=== PATIENT | female | born 1940 | race Caucasian/White ===

== ENCOUNTER → 2017-10-04 14:41 | Outpatient (CLI) | payer OTHER, SELFPAY ==
--- NOTE | 2017-10-04 | DI.CT.S_ITS ---
PROCEDURE: CT ABDOMEN PELVIS WO CON INDICATIONS: ABDOMINAL PAIN LEFT LOWER QUADRANT TECHNIQUE: After the administration of oral contrast, 5 mm thick sections acquired from the diaphragms to the symphysis. 5 mm coronal and sagittal reformats were performed. For radiation dose reduction, the following was used: automated exposure control, adjustment of mA and/or kV according to patient size. COMPARISON: None. FINDINGS: Image quality: Excellent. ABDOMEN: Lung bases: There is mild anterior left basilar atelectasis. The lung bases are otherwise clear. Heart size is mildly enlarged. No pericardial effusion. Solid organs: Liver is normal in size. Gallbladder is contracted. Pancreas is normal in size. Spleen is normal in size. No adrenal nodules. Both kidneys are normal in size, without hydronephrosis or nephrolithiasis. Peritoneum and bowel: The stomach is contrast-filled. The small bowel demonstrates normal caliber and wall thickness. There colonic diverticular outpouchings throughout the colon. These are most concentrated within the sigmoid colon. Focal mucosal thickening and pericolonic fat stranding is present within the mid sigmoid colon (series 2, image 67). No discrete pericolonic fluid or pneumoperitoneum. The appendix is thin walled and gas-filled. Nodes and vessels: No retroperitoneal or mesenteric adenopathy by size criteria. Aorta and inferior vena cava are normal in size. Miscellaneous: No ventral hernias. PELVIS: Genitourinary: Bladder wall thickness is normal. Miscellaneous: No inguinal hernias or adenopathy. Bones: A 7 mm diameter sclerotic focus is present within the right and a 7 mm sclerotic focus is present within the right iliac. These likely represent small bone islands, but no prior comparisons are available. Degenerative changes are present throughout the lumbar spine. No vertebral body compression fractures. IMPRESSION: 1. Diverticulosis and acute nonperforated diverticulitis. 2. Normal appendix. These findings were discussed with Dr. Stratton at 5:27 PM on 10/04/17. Dictated by: Aracely Cerrato M.D. on 10/04/2017 at 17:20 Approved by: Aracely Cerrato M.D. on 10/04/2017 at 17:28
== END ==
PROVIDERS: PCP Nurse Practitioner Family; Visit Provider Nurse Practitioner Family
DX: K57.92 Diverticulitis of intestine, part unspecified, without perforation or abscess without bleeding (principal); R10.32 Left lower quadrant pain
CPT/HCPCS: 74176

== ENCOUNTER → 2017-12-08 10:14 | Outpatient (CLI) | payer OTHER, SELFPAY ==
--- NOTE | 2017-12-08 | DI.MG.S_ITS ---
BILATERAL DIGITAL SCREENING MAMMOGRAM 3D/2D WITH CAD: 12/08/2017 CLINICAL: Routine screening. Family history of breast cancer. Comparison is made to exams dated: 07/30/2016 mammogram, 01/21/2015 mammogram, and 01/15/2014 mammogram - [facility]. The tissue of both breasts is heterogeneously dense. This may lower the sensitivity of mammography. Current study was also evaluated with a Computer Aided Detection (CAD) system. There are benign vascular calcifications in both breasts. There is a mole marker on the right breast. No significant masses, calcifications, or other findings are seen in either breast. There has been no significant interval change. IMPRESSION: There is no mammographic evidence of malignancy. A 1 year screening mammogram is recommended.(12/09/2018) This exam was interpreted at Station ID: [id number]. NOTE: For mammograms, a report in lay terms will be sent to the patient. Approximately 15% of breast malignancies will not be visualized mammographically. In the management of a palpable breast mass, a negative mammogram must not discourage biopsy of a clinically suspicious lesion. Electronically Signed By: Nas melendez/tiarra:12/09/2017 05:48:20 letter sent: Normal Exam ACR BI-RADS Category 2: Benign Finding(s) 3342F
== END ==
PROVIDERS: PCP Nurse Practitioner Family; Visit Provider Nurse Practitioner Family
DX: Z12.31 Encounter for screening mammogram for malignant neoplasm of breast (principal); Z80.3 Family history of malignant neoplasm of breast
CPT/HCPCS: 77063; 77067

== ENCOUNTER → 2018-06-09 12:09 | Outpatient (CLI) | payer OTHER, SELFPAY ==
--- NOTE | 2018-06-09 | DI.US.S_ITS ---
PROCEDURE: US PERIPH VENOUS LOW EXTREM BI INDICATIONS: BILATERAL LEG PAIN TECHNIQUE: Real-time imaging, as well as color and pulse Doppler interrogation, were performed of the deep veins of both legs from the inguinal ligament to the popliteal fossa. COMPARISON: None. FINDINGS: Right: The common femoral, femoral and popliteal veins are normally compressible, and free of intraluminal thrombus. Color and pulse Doppler demonstrate normal phasic intravascular flow. There is normal augmentation response to distal compression maneuver. Left: The common femoral, femoral and popliteal veins are normally compressible, and free of intraluminal thrombus. Color and pulse Doppler demonstrate normal phasic intravascular flow. There is normal augmentation response to distal compression maneuver. IMPRESSION: No DVT in lower extremities. Dictated by: Guero Almeida M.D. on 06/09/2018 at 13:28 Approved by: Guero Almeida M.D. on 06/09/2018 at 13:29
== END ==
PROVIDERS: PCP Nurse Practitioner Family; Visit Provider Nurse Practitioner Family
DX: M79.604 Pain in right leg (principal); M79.605 Pain in left leg
CPT/HCPCS: 93970

== ENCOUNTER → 2018-08-02 09:37 | Outpatient (CLI) | payer OTHER, SELFPAY | PROVIDERS: PCP Nurse Practitioner Family; Visit Provider Family Medicine | DX: M85.88 Other specified disorders of bone density and structure, other site (principal); Z78.0 Asymptomatic menopausal state; Z82.62 Family history of osteoporosis; Z87.891 Personal history of nicotine dependence | CPT/HCPCS: 77080 ==

== ENCOUNTER → 2018-12-30 08:59 | Outpatient (CLI) | payer OTHER, SELFPAY ==
--- NOTE | 2018-12-30 | DI.MG.S_ITS ---
BILATERAL DIGITAL DIAGNOSTIC MAMMOGRAM 3D/2D: 12/30/2018 CLINICAL: Left breast pain. Comparison is made to exams dated: 12/08/2017 mammogram, 07/30/2016 mammogram, 01/21/2015 mammogram, 01/15/2014 mammogram, 01/12/2013 mammogram - [facility], and 03/03/2011 mammogram - [facility]. The tissue of both breasts is heterogeneously dense. This may lower the sensitivity of mammography. No significant masses, calcifications, or other findings are seen in either breast. There has been no significant interval change. No abnormality in the region of diffuse left lateral breast pain. IMPRESSION: NEGATIVE There is no mammographic evidence of malignancy. A 1 year screening mammogram is recommended. Exam findings were conveyed to the patient by the room service associate. The patient was advised to return for re-evaluation if the pain becomes focal, a mass is palpated, skin changes, or nipple discharge. This exam was interpreted at Station ID: [id number]. NOTE: For mammograms, a report in lay terms will be sent to the patient. Approximately 15% of breast malignancies will not be visualized mammographically. In the management of a palpable breast mass, a negative mammogram must not discourage biopsy of a clinically suspicious lesion. Electronically Signed By: Iftikhar Delarosa M.D. [facility]/:12/30/2018 09:49:54 letter sent: Normal Exam ACR BI-RADS Category 1: Negative 3341F
== END ==
PROVIDERS: PCP Nurse Practitioner Family; Visit Provider Nurse Practitioner Family
DX: N64.4 Mastodynia (principal)
CPT/HCPCS: 77066; G0279

== ENCOUNTER → 2019-01-10 13:31 | Outpatient (CLI) | payer OTHER, SELFPAY ==
--- NOTE | 2019-01-10 14:57 | PM.TREADMILL ---
Cardiac Stress Test Report Referral & Results Date Patient Seen: 01/10/19 Requesting provider: Amaya Palomares Indication: First-degree AV block Rest ECG: Unremarkable except for first-degree AV block Procedure Note: Today following both written and verbal informed consent, the patient was exercised according to a standard Abel protocol. The patient exercised for a total of 6 minutes 33 seconds achieving a maximum heart rate of 152. Patient's maximum systolic blood pressure was 160. This was an estimated 7.[address]-T segment changes identified Normal heart rate and blood pressure response to exercise Functional aerobic impairment rates about-20% on the active scale or 20% better than average Occasional to rare PAC Occasional multifocal PVCs Impression: No ECG evidence of ischemia Excellent exercise capacity Please note: Actual ECG tracings can be found in the PACS system.
== END ==
PROVIDERS: PCP Nurse Practitioner Family; Visit Provider Nurse Practitioner Family
DX: I44.0 Atrioventricular block, first degree (principal); R07.89 Other chest pain
CPT/HCPCS: 93016; 93017; 93018

== ENCOUNTER → 2019-01-11 06:41 | Outpatient (CLI) | payer OTHER, SELFPAY ==
--- NOTE | 2019-01-11 | DI.ECHO.S_ITS ---
[facility] +---------+ [facility] +---------+ : : [address] : : : : [id number] : : : : Phone: [phone]+ Echocardiogram Report + + :Name: KANDACE FINCH Study Date: 01/11/2019 Height: 66 in : :[facility] Weight: 137 lb : : Gender: Female BSA: 1.7 m2 : :: 1940 Age: 78 yrs BP: 150/90 mmHg: :Reason For Study: CHEST PAIN : : Performed By: Francisco J Astorga : :Referring: DALTON DALLAS : + + Interpretation Summary Left ventricular systolic function is normal without focal wall motion abnormalities with a ejection fraction visually estimated to be 55-60%. Diastolic parameters suggest a relaxation abnormality of the left ventricle, consistent with probable normal filling pressures. The right ventricle is normal in size and function. The right ventricular systolic pressure is estimated to be at least 26 mmHg based on an estimated right atrial pressure of 3 mm Hg. The left atrium is moderately dilated. There is moderate mitral regurgitation and mild tricuspid regurgitation but no other significant valvular heart disease. The ascending aorta is mildly enlarged. Procedure: A two-dimensional transthoracic echocardiogram with color flow and Doppler was performed. The study quality was technically good. There is no prior echocardiogram noted for this patient. The patient was in normal sinus rhythm during the exam. The patient had occasional PVCs during the exam. Left Ventricle: The left ventricle is normal in size. There is normal left ventricular wall thickness. Left ventricular systolic function is normal without focal wall motion abnormalities. The ejection fraction is estimated to be 55-60%. Diastolic parameters suggest a relaxation abnormality of the left ventricle, consistent with probable normal filling pressures. Right Ventricle: The right ventricle is normal in size and function. Atria: The left atrium is moderately dilated. Right atrial size is normal. The interatrial septum is intact with no evidence for an atrial septal defect. Mitral Valve: The mitral valve leaflets appear mildly thickened, but open well. There is moderate mitral regurgitation. Aortic Valve: The aortic valve is trileaflet. The aortic valve opens well. No aortic regurgitation is present. Tricuspid Valve: The tricuspid valve is normal in structure and function. There is mild tricuspid regurgitation. The right ventricular systolic pressure is estimated to be at least 26 mmHg based on an estimated right atrial pressure of 3 mm Hg. Pulmonic Valve: The pulmonic valve is normal in structure and function. There is trace pulmonic regurgitation. There is no other significant valvular heart disease. Great Vessels: The aortic root is normal size. The ascending aorta is mildly enlarged. The pulmonary artery is normal size. The IVC is of normal diameter and collapses greater than 50% with a sniff. This suggests a low right atrial pressure of 3 mm Hg. Pericardium/ Pleura There is no pericardial effusion. There is no pleural effusion. MMode/2D Measurements & Calculations LVIDd: 4.4 cm LVOT diam: 2.2 cm LVIDs: 3.3 cm Ao root diam: 3.8 cm FS: 24.5 % Aortic Jxn: 3.3 cm EPSS: 0.62 cm asc Aorta Diam: 3.6 cm IVSd: 0.83 cm Ao Arch Diam (Prox Trans): 2.7 cm LVPWd: 0.78 cm LV pineda. diameter/BSA (cm/m^2): 2.6 LV sys. diameter/BSA (cm/m^2): 1.9 LA dimension: 2.9 cm RA long axis: 4.9 cm LA A2 area: 21.7 cm2 RA area: 16.2 cm2 LA A4 area: 19.5 cm2 RA vol: 45.7 ml LA length (vol): 5.0 cm RA : 26.9 ml/m2 LA vol: 71.3 ml IVC diam: 1.7 cm LA vol index: 41.9 ml/m2 RVD1 (basal): 4.4 cm RVD2 (mid): 3.8 cm Doppler Measurements & Calculations Ao V2 max: 109.2 cm/sec LVOT Max Guilherme: 92.2 cm/sec Ao V2 mean: 76.4 cm/sec LV V1 max P.4 mmHg Ao max P.8 mmHg LV V1 VTI: 22.4 cm Ao mean P.5 mmHg TIFFANIE(I,D): 3.5 cm2 Ao V2 VTI: 25.0 cm TIFFANIE(V,D): 3.3 cm2 sev ratio: 0.89 TIFFANIE indexed to BSA (cm^2/m^2): 2.0 MV E max guilherme: 39.7 cm/sec TR max guilherme: 240.3 cm/sec MV A max guilherme: 71.4 cm/sec TR max P.1 mmHg MV E/A: 0.56 PA V2 max: 51.6 cm/sec Med Peak E' Guilherme: 3.6 cm/sec PA V2 mean: 39.4 cm/sec E/E' med: 11.0 PA mean P.66 mmHg Lat Peak E' Guilherme: 7.6 cm/sec PA pr(Accel): 49.1 mmHg E/E' lat: 5.2 PA Accel Time: 0.07 sec E/e' average: 8.1 MV dec time: 0.17 sec SV(LVOT): 87.1 ml Reading Physician:GLADIS
== END ==
PROVIDERS: PCP Nurse Practitioner Family; Visit Provider Nurse Practitioner Family
DX: I08.1 Rheumatic disorders of both mitral and tricuspid valves (principal); R07.89 Other chest pain; I44.0 Atrioventricular block, first degree; I77.89 Other specified disorders of arteries and arterioles
CPT/HCPCS: 93306

== ENCOUNTER 2019-11-16 16:45 | Emergency (ER) | payer OTHER, SELFPAY ==
[2019-11-16 16:59] VITALS: BP 183/96; PULSE 92; RESP 18; TEMP 36.6; O2SAT 99; BMI 21.6
--- NOTE | 2019-11-16 17:05 | DI.RAD.S_ITS ---
PROCEDURE: XR RIBS LT MIN 3V W CXR1V INDICATIONS: L lower rib pain post fall TECHNIQUE: 2 views of the left ribs were acquired, along with a single view chest. COMPARISON: None. FINDINGS: Surgical changes and devices: None. Bones and chest wall: No dislocations. There appears to be a slightly angulated fracture involving the anterior aspect of the left 6th rib near the area of plain film surface marker indicating site of maximal tenderness. No suspicious bony lesions. Overlying soft tissues appear unremarkable. Lungs and pleura: No pleural effusions or pneumothorax. Lungs appear clear. Mediastinum: Mediastinal contours appear normal. Heart size is normal. IMPRESSION: No pneumothorax. Minimally displaced anterior left 6th rib fracture. Dictated by: Adrian Salgado M.D. on 11/16/2019 at 17:25 Approved by: Adrian Salgado M.D. on 11/16/2019 at 17:27
--- NOTE | 2019-11-16 17:05 | DI.RAD.S_ITS ---
PROCEDURE: XR HAND LT MIN 3V INDICATIONS: L lateral hand pain post fall (4-5 metatarsals) TECHNIQUE: 3 views of the hand(s) acquired. COMPARISON: None. FINDINGS: Bones: No fractures or dislocations. Carpal bones are normally aligned. No suspicious bony lesions. Soft tissues: No suspicious soft tissue calcifications. 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 Mild to moderate such degeneration at the base of the 1st metacarpal bone. No fracture or dislocation found. Dictated by: Adrian Salgado M.D. on 11/16/2019 at 17:27 Approved by: Adrian Salgado M.D. on 11/16/2019 at 17:28
--- NOTE | 2019-11-16 17:08 | ED_ITS ---
HPI - Extremity Injury (Upper) <TIM Pantoja - Last Filed: 11/16/19 20:58> General Chief Complaint: Extremity Injury, Upper Stated Complaint: LT RIB PAIN, LT WRIST PAIN Time Seen by Provider: 11/16/19 16:56 History of Present Illness HPI narrative: 79yo female presents to the emergency department for left hand in left rib pain after fall. Patient states she was playing pickleball and slipped and fell on her left side. She reports sharp stabbing pain under her left breast when she takes a deep breath or moves and changes position. Patient states she also fell on her hand, complains of swelling and bruising to the the lateral aspect of her left hand with pain upon palpation. Patient denies any other injury, she denies head injury, syncope, dizziness, nausea, vomiting, diarrhea, or any other concerns. Related Data Home Medications Medication Instructions Recorded Confirmed aspirin 650 mg PO QDAY #0 10/16/15 calcium acetate(phosphat bind) 667 mg PO TIDCC #0 10/16/15 multivitamin [Multiple Vitamins] 1 tab PO QDAY #0 tab 10/16/15 Allergies Allergy/AdvReac Type Severity Reaction Status Date / Time iodine [IODINE] Allergy Unknown INJECTED Unverified 06/23/17 12:24 IODINE ONLY, NOT TOPICAL Review of Systems <TIM Pantoja - Last Filed: 11/16/19 20:58> Review of Systems Narrative: REVIEW OF SYSTEMS: GENERAL: Denies fever or chills. HENT: No head trauma. EYES: No double vision or vision loss. CARDIOVASCULAR: No chest pain. RESPIRATORY: No cough. GASTROINTESTINAL: No nausea, vomiting, diarrhea, or constipation. MUSCULOSKELETAL: Complains of left hand and rib pain, see HPI. INTEGUMENTARY: No rash. NEURO: No numbness, tingling. PSYCH: No behavior or mood changes. Patient History <TIM Pantoja - Last Filed: 11/16/19 20:58> Medical History No significant medical problems (Acute) Social History Smoking Status: Former smoker Exam <TIM Pantoja - Last Filed: 11/16/19 20:58> Initial Vital Signs Initial Vital Signs: Vital Signs Temperature 97.9 F 11/16/19 16:59 Pulse Rate 92 H 11/16/19 16:59 Respiratory Rate 18 11/16/19 16:59 Blood Pressure 183/96 H 11/16/19 16:59 Pulse Oximetry 99 11/16/19 16:59 PHYSICAL EXAMINATION: GENERAL: Well groomed, alert, and cooperative. Answers questions promptly and appropriately. Vital signs noted. HENT: Normocephalic, atraumatic. EYES: Symmetrical, sclera white, no periorbital swelling. NECK: No cervical tenderness. CARDIOVASCULAR: S1 and S2 sounds normal. Regular rate and rhythm, no murmurs, clicks, or bruits. RESPIRATORY: Normal respiratory rate, trachea midline, airway patent. No stridor, nasal flaring or accessory muscle use. Lungs are clear in all hester. MUSCULOSKELETAL: Ecchymosis, swelling, and tenderness to palpation over 4th and 5th left metacarpals, tenderness to palpation of lower left anterior ribs. No pain to palpation of left wrist, elbow, clavicle, hip, knee, or ankle. Normal gait and coordination. Equal tone and mass bilaterally. No spinal tenderness or deformities. EXTREMITIES: CMS intact. SKIN: Warm, dry, soft, appropriate color for ethnicity. No lesions, rashes, or wounds. NEURO: Alert and Oriented X 3. No sensory deficits. PSYCH: Appropriate affect and mood. <Kranthi Swift DO - Last Filed: 11/17/19 00:46> Initial Vital Signs Initial Vital Signs: Vital Signs Temperature 97.9 F 11/16/19 16:59 Pulse Rate 92 H 11/16/19 16:59 Respiratory Rate 18 11/16/19 16:59 Blood Pressure 183/96 H 11/16/19 16:59 Pulse Oximetry 99 11/16/19 16:59 Course <TIM Pantoja - Last Filed: 11/16/19 20:58> Orders Ordered: ED Orders 11/16/19 17:05 XR hand LT min 3V Stat XR ribs LT min 3V w CXR1V Stat Vital Signs Vital signs: Vital Signs - 8 hr 11/16/19 16:59 Temperature 97.9 F Pulse Rate 92 H Respiratory Rate 18 Blood Pressure 183/96 H Pulse Oximetry 99 <Kranthi Swift DO - Last Filed: 11/17/19 00:46> Orders Ordered: ED Orders 11/16/19 17:05 XR hand LT min 3V Stat XR ribs LT min 3V w CXR1V Stat Vital Signs Vital signs: Vital Signs - 8 hr 11/16/19 16:59 Temperature 97.9 F Pulse Rate 92 H Respiratory Rate 18 Blood Pressure 183/96 H Pulse Oximetry 99 MDM - Extremity Injury (Upper) <TIM Pantoja - Last Filed: 11/16/19 20:58> Medical Records Attestation: I reviewed the patient's medical records. Lab Data Attestation: I reviewed the patient's lab results. Imaging Data Rib Xray: Radiologist's Impression: [address] [address] XRay Report Signed Patient: Felicita Bhatti OSWALDO#: [id number] : 2Acct:[id number] Age/Sex: 79 / FDate of Service: 11/16/19 Loc: ED Accession Number: [id number] Procedure: XR ribs LT min 3V w CXR1V Ordering Provider: Angela Crooks PROCEDURE: XR RIBS LT MIN 3V W CXR1V INDICATIONS: L lower rib pain post fall TECHNIQUE: 2 views of the left ribs were acquired, along with a single view chest. COMPARISON: None. FINDINGS: Surgical changes and devices: None. Bones and chest wall: No dislocations. There appears to be a slightly angulated fracture involving the anterior aspect of the left 6th rib near the area of plain film surface marker indicating site of maximal tenderness. No suspicious bony lesions. Overlying soft tissues appear unremarkable. Lungs and pleura: No pleural effusions or pneumothorax. Lungs appear clear. Mediastinum: Mediastinal contours appear normal. Heart size is normal. IMPRESSION: No pneumothorax. Minimally displaced anterior left 6th rib fracture. Dictated by: Adrian Salgado M.D. on 11/16/2019 at 17:25 Approved by: Adrian Salgado M.D. on 11/16/2019 at 17:27 Extremity x-ray #1: Radiologist's Impression: [address] [address] XRay Report Signed Patient: GaneshalyFelicita#: [id number] : 2Acct:[id number] Age/Sex: 79 / FDate of Service: 11/16/19 Loc: ED Accession Number: [id number] Procedure: XR hand LT min 3V Ordering Provider: Angela Crooks PROCEDURE: XR HAND LT MIN 3V INDICATIONS: L lateral hand pain post fall (4-5 metatarsals) TECHNIQUE: 3 views of the hand(s) acquired. COMPARISON: None. FINDINGS: Bones: No fractures or dislocations. Carpal bones are normally aligned. No suspicious bony lesions. Soft tissues: No suspicious soft tissue calcifications. 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 Mild to moderate such degeneration at the base of the 1st metacarpal bone. No fracture or dislocation found. Dictated by: Adrian Salgado M.D. on 11/16/2019 at 17:27 Approved by: Adrian Salgado M.D. on 11/16/2019 at 17:28 MDM Narrative Medical decision making narrative: 79-year-old female presenting to the emergency department after a fall, reporting left hand and left rib pain. Chest x-ray shows a single 6th rib fracture without indication of pulmonary contusion or abnormalities. And x-ray negative for any fractures. Patient declined any pain medication, appeared to be moving without severe pain. Patient was given incentive spirometer. She was encouraged to follow up with PCP in 1-2 weeks. No concern for head trauma due to benign examination, patient was alert and awake and able to relate aspects of fall, denies hitting her head. Return precautions given for new or worsening symptoms. Patient agreed to plan of care and verbalized understanding Discharge Plan Departure Patient Disposition: Home Clinical Impression: Rib fracture Qualifiers: Encounter type: initial encounter Rib fracture type: single rib Fracture type: closed Laterality: left Qualified Code(s): S22.32XA - Fracture of one rib, left side, initial encounter for closed fracture Left wrist sprain Qualifiers: Encounter type: initial encounter Qualified Code(s): S63.502A - Unspecified sprain of left wrist, initial encounter Discharge Date/Time: 11/16/19 18:28 Instructions: DI for Rib Fracture Activity Restrictions/Additional Instructions: Thank you for entrusting me with your care today. As discussed, you have a fracture to your 6th rib. Your wrist x-rays non-remarkable. We have given you an incentive spirometer, take 10 deep breath 10 times a day for the next 4 weeks to help prevent pneumonia. Follow-up with your primary care provider in the next 2-3 weeks for further evaluation. Return emergency department for any new or worsening symptoms such as high fever, shortness of breath, or any other concerns. Prescriptions: No Action aspirin 325 MG tablet 650 mg PO QDAY Qty: 0 RF: 0 multivitamin [Multiple Vitamins] 1 EACH tablet 1 tab PO QDAY Qty: 0 RF: 0 calcium acetate(phosphat bind) 667 MG capsule 667 mg PO TIDCC Qty: 0 RF: 0 Referrals: Amaya Palomares ARNP [Primary Care Provider] - <Kranthi Swift DO - Last Filed: 11/17/19 00:46> Cosign ED Attending Cosignature Attestation: I was immediately available in the department for consultation. This documentation has been reviewed and I agree with assessment and plan. Supervised by Kranthi Swift DO
== END 2019-11-16 18:28 | disposition home or self-care (01) ==
PROVIDERS: Emergency Provider Nurse Practitioner; PCP Nurse Practitioner Family
DX: S22.32XA Fracture of one rib, left side, initial encounter for closed fracture (principal); S63.502A Unspecified sprain of left wrist, initial encounter; W19.XXXA Unspecified fall, initial encounter
CPT/HCPCS: 71101; 73130; 99283

== ENCOUNTER → 2020-01-06 08:57 | Outpatient (CLI) | payer OTHER, SELFPAY ==
--- NOTE | 2020-01-06 | DI.MG.S_ITS ---
BILATERAL DIGITAL SCREENING MAMMOGRAM 3D/2D WITH CAD: 01/06/2020 CLINICAL: Routine screening. Family history of breast cancer. Comparison is made to exams dated: 12/30/2018 mammogram, 12/08/2017 mammogram, and 07/30/2016 mammogram - [facility]. The tissue of both breasts is heterogeneously dense. This may lower the sensitivity of mammography. Current study was also evaluated with a Computer Aided Detection (CAD) system. No significant masses, calcifications, or other findings are seen in either breast. There has been no significant interval change. IMPRESSION: NEGATIVE There is no mammographic evidence of malignancy. A 1 year screening mammogram is recommended. This exam was interpreted at Station ID: [id number]. NOTE: For mammograms, a report in lay terms will be sent to the patient. Approximately 15% of breast malignancies will not be visualized mammographically. In the management of a palpable breast mass, a negative mammogram must not discourage biopsy of a clinically suspicious lesion. Electronically Signed By: Rupesh martinez/tiarra:01/08/2020 08:40:19 letter sent: Normal Exam ACR BI-RADS Category 1: Negative [id number]
== END ==
PROVIDERS: PCP Internal Medicine; Referring Provider Internal Medicine; Visit Provider Internal Medicine
DX: Z12.31 Encounter for screening mammogram for malignant neoplasm of breast (principal); Z80.3 Family history of malignant neoplasm of breast
CPT/HCPCS: 77063; 77067

== ENCOUNTER → 2020-07-10 14:12 | Outpatient (CLI) | payer OTHER, SELFPAY | PROVIDERS: PCP Internal Medicine; Referring Provider Internal Medicine; Visit Provider Internal Medicine | DX: M85.89 Other specified disorders of bone density and structure, multiple sites (principal) | CPT/HCPCS: 77080 ==

== ENCOUNTER → 2020-10-09 10:18 | Outpatient (CLI) | payer OTHER, SELFPAY ==
[2020-10-09 11:19] LABS: COVID19 -Nasal RAPID Negative (Negative)
== END ==
PROVIDERS: PCP Internal Medicine; Visit Provider Physician Assistant
DX: Z20.822 Contact with and (suspected) exposure to COVID-19 (principal)
CPT/HCPCS: 87635

== ENCOUNTER 2020-10-11 14:16 | Day surgery (SDC) | payer OTHER, SELFPAY ==
[2020-10-11] VITALS (7 sets, daily range): BP systolic 109–147; BP diastolic 63–91; PULSE 58–87; RESP 13–17; TEMP 36.3–36.6; O2SAT 96–99; BMI 20.7
--- NOTE | 2020-10-11 12:27 | PM.HP.1 ---
History of Present Illness History of Present Illness Date Patient Seen: 10/11/20 Chief complaint: SCREENING COLONOSCOPY Narrative: 79 year old female comes in today for consideration of a screening colonoscopy. Two lifetime colonoscopies. Last colonoscopy in 2010 significant for diverticulosis. There have been no lower GI symptoms suggesting disease such as change in bowel habits, bleeding, abdominal pain or anemia. There's been no family history of colon cancer or colon polyps. Overall health issues have been stable, including no major cardiac events for at least 6 weeks. 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 Patient History Medical History (Updated 12/01/19 @ 00:00 by ) No significant medical problems Family & Social History Tobacco & Substance use: Smoking Status Former smoker alcohol intake frequency 0-2 drinks per day Substance Use Type does not use Meds Home Medications and Allergies Home Medications Medication Instructions Recorded Confirmed Type atorvastatin 10 mg tablet 10 mg PO QPM 10/11/20 10/11/20 History losartan 25 mg tablet 25 mg PO DAILY 10/11/20 10/11/20 History Allergies Allergy/AdvReac Type Severity Reaction Status Date / Time iodine [IODINE] Allergy Unknown INJECTED Verified 10/11/20 14:47 IODINE ONLY, NOT TOPICAL Review of Systems Review of Systems Narrative: See HPI. Exam Narrative Exam Narrative: GENERAL: Alert and oriented, appearing stated age and in no acute distress. HEENT: Head normocephalic/atraumatic. LUNGS: Clear to ausculation bilaterally, no wheezes, rhonchi or rales. CV: Normal S1 and S2 with regular rate and rhythm, no audible murmurs, rubs or gallops. ABDOMEN: Soft, non-tender, non-distended, no organomegaly. Positive bowel sounds. EXTREMITIES: No clubbing, cyanosis, or edema. NEURO: Cranial nerves II through XII grossly intact, no focal deficits. PSYCH: Alert and oriented x 3. SKIN: No concerning lesions. Assessment & Plan Assessment & Plan narrative: 1. Screening for colon cancer 2. History of diverticulosis Plan for colonoscopy. The nature and character of the procedure as well as anticipated results were discussed. The possibility of not completing the procedure was also discussed. Possible complications including aspiration pneumonia, bleeding, perforation and reaction to medications either for sedation or preparation and missed lesions were discussed. Questions were answered and proceeding to the colonoscopy was elected. Informed consent signed. I sincerely appreciate the referral allowing me to participate in this patient's care. Please contact me with any questions or concerns.
--- NOTE | 2020-10-11 12:31 | PM.OP.ENDO ---
Operative Date/Time/Diagnoses Date of procedure: 10/11/20 Procedure Notes SCOAP/Timeout: 3:18 p.m. Procedure in detail: ENDOSCOPIST: Jaclyn Avery MD Sedation RN: Emely Schmitt RN Sedation start time: 3:19 p.m. Sedation end time: 3:47 p.m. PROCEDURE: Colonoscopy INDICATIONS: 1. Screening for colon cancer 2. History of diverticulosis MEDICATION: Levsin 0.125 mg sublingual, incremental doses of Versed and fentanyl until appropriate level of sedation achieved. ASA CLASS: 2 CECAL WITHDRAWAL TIME: 7 minutes COMPLICATIONS: None. EXTENT OF PROCEDURE: Cecum. QUALITY OF PREP: Good with portions of liquid stool. PROCEDURE: Prior to insertion of the colonoscope, a digital rectal examination was accomplished with circumferential palpation of the distal rectal mucosa without significant findings being noted. The high-definition pediatric colonoscope was passed into the rectum in the usual fashion and advanced over to the cecum without difficulty. The ileocecal valve, appendiceal stoma, and medial wall all could be inspected and no abnormalities were seen. ASCENDING COLON: As the colonoscope was withdrawn, care was taken to expose and inspect the haustral folds and no abnormalities were seen. HEPATIC FLEXURE: Normal, no polyps, diverticula or other abnormalities. TRANSVERSE COLON: Mild diverticulosis, otherwise normal, no polyps or other abnormalities. DESCENDING COLON: Moderate diverticulosis, otherwise normal colon, no other abnormalities. SIGMOID COLON: Moderate to severe diverticulosis, otherwise normal, no polyps, or other abnormalities. RECTUM: Normal. J maneuver was produced. There was no significant perianal disease. The J maneuver was broken. The remainder of the rectum was inspected and there was no external hemorrhoid disease. The scope was withdrawn. IMPRESSION: 1. Diverticulosis, mild to severe, left and right-sided PLAN: 1. Patient no longer needs colonoscopies secondary to age. The possibility of a missed lesion including a malignancy has been discussed with the patient previously. Potential alarm symptoms have been discussed and should be reported immediately.
[2020-10-11] MEDS: LACTATED RINGERS 1,000 ML 200 ML IV (15:02)
[2020-10-11] MEDS: HYOSCYAMINE 0.125 MG TABLET PO (15:05)
[2020-10-11] MEDS: fentaNYL 250 MCG/5 ML INJ IV (15:36)
[2020-10-11] MEDS: MIDAZOLAM 5 MG/5 ML VIAL IV (15:36)
--- NOTE | 2020-10-11 16:08 | SUR.PHASEI ---
VSS, sleeping well, no response to voice. Did not induce pain - allowed patient to sleep
== END 2020-10-11 16:35 | disposition home or self-care (01) ==
PROVIDERS: PCP Internal Medicine; Referring Provider Student in an Organized Health Care Education/Training Program; Visit Provider Student in an Organized Health Care Education/Training Program
PROC: 0DJD8ZZ Inspection of Lower Intestinal Tract, Via Natural or Artificial Opening Endoscopic (ICD-10-PCS; CPT 45378; principal; 2020-10-11 15:15)
DX: Z12.11 Encounter for screening for malignant neoplasm of colon (principal); I10 Essential (primary) hypertension; E78.5 Hyperlipidemia, unspecified; I44.0 Atrioventricular block, first degree; K57.30 Diverticulosis of large intestine without perforation or abscess without bleeding
CPT/HCPCS: G0105; J2250; J3010

== ENCOUNTER → 2020-10-29 09:33 | Outpatient (CLI) | payer OTHER, SELFPAY ==
--- NOTE | 2020-10-29 | DI.ECHO.S_ITS ---
[facility] +---------+ Hospital +---------+ : : [address] : : : : [id number] : : : : Phone: [phone]+ Echocardiogram Report + + :Name: KANDACE FINCH Study Date: 10/29/2020 Height: 65.5 in: :[facility] ReadingLocation: Weight: 125 lb : : Gender: Female BSA: 1.6 m2 : :: 1940 Age: 79 yrs BP: 136/87 mmHg: :Reason For Study: MITRAL INSUFFICIENCY : :Ordering Physician: LINDA, : :JESSE Performed By: Meghan James : :Referring: JESSE SERNA : + + Interpretation Summary 1) Normal left ventricular size, thickness, wall motion, and systolic function (EF 60-65%). 2) Normal right ventricular size and function. 3) There is mild mitral regurgitation. 4) Compared to the Echo done 01/11/2019, mitral regurgitation has decreased from moderate to mild on this study. Procedure: A two-dimensional transthoracic echocardiogram with color flow and Doppler was performed. The study quality was technically adequate. Comparison is made with the echocardiogram of 01/11/2019. The patient was in sinus rhythm with heart rates between 63-68 bpm during the exam. Left Ventricle: The left ventricle is normal in size and wall thickness. The ejection fraction is estimated to be 60-65%. Left ventricular systolic function appears normal without focal wall motion abnormalities. Diastolic parameters suggest a relaxation abnormality of the left ventricle, consistent with probable normal filling pressures. Right Ventricle: The right ventricle is normal in size and function. Atria: Both atria are normal in size. There is no Doppler evidence for an interatrial shunt. Mitral Valve: The mitral valve leaflets appear mildly thickened, but open well. There is mild mitral regurgitation. Aortic Valve: The aortic valve is trileaflet. The aortic valve opens well. There is no aortic valve stenosis. No aortic regurgitation is present. Tricuspid Valve: The tricuspid valve is normal in structure and function. There is mild tricuspid regurgitation. The right ventricular systolic pressure is estimated to be at least 24 mmHg based on an estimated right atrial pressure of 3 mm Hg. Pulmonic Valve: The pulmonic valve is not well seen, but is grossly normal. There is mild pulmonic regurgitation. Great Vessels: The aortic root is normal size. The ascending aorta is mildly enlarged. The IVC is of normal diameter and collapses greater than 50% with a sniff. This suggests a low right atrial pressure of 3 mm Hg. Pericardium/ Pleura There is no pericardial effusion. There is no pleural effusion. MMode/2D Measurements & Calculations LVIDd: 4.3 cm LVOT diam: 2.0 cm LVIDs: 3.0 cm Ao root diam: 3.8 cm FS: 29.9 % asc Aorta Diam: 3.7 cm IVSd: 0.85 cm Ao Arch Diam (Prox Trans): 2.6 cm LVPWd: 0.68 cm LV pineda. diameter/BSA (cm/m^2): 2.6 LV sys. diameter/BSA (cm/m^2): 1.9 LA A2 area: 18.6 cm2 RA long axis: 5.1 cm LA A4 area: 16.1 cm2 RA area: 19.6 cm2 LA length (vol): 5.2 cm RA vol: 64.1 ml LA vol: 49.4 ml RA : 39.4 ml/m2 LA vol index: 30.3 ml/m2 IVC diam: 1.9 cm RVD1 (basal): 3.3 cm TAPSE: 1.7 cm Doppler Measurements & Calculations Ao V2 max: 103.3 cm/sec LVOT Max Guilherme: 101.0 cm/sec Ao V2 mean: 71.3 cm/sec LV V1 max P.1 mmHg Ao max P.3 mmHg LV V1 VTI: 21.4 cm Ao mean P.3 mmHg TIFFANIE(I,D): 3.1 cm2 Ao V2 VTI: 22.0 cm TIFFANIE(V,D): 3.1 cm2 sev ratio: 0.97 TIFFANIE indexed to BSA (cm^2/m^2): 1.9 MV E max guilherme: 40.2 cm/sec TR max guilherme: 231.7 cm/sec MV A max guilherme: 64.3 cm/sec TR max P.5 mmHg MV E/A: 0.62 PA V2 max: 98.7 cm/sec Med Peak E' Guilherme: 4.2 cm/sec PA V2 mean: 67.5 cm/sec E/E' med: 9.5 PA mean P.1 mmHg Lat Peak E' Guilherme: 8.1 cm/sec PA pr(Accel): 27.6 mmHg E/E' lat: 5.0 E/e' average: 7.2 MV dec time: 0.32 sec SV(LVOT): 68.3 ml Reading Physician:12:41 PM
== END ==
PROVIDERS: PCP Internal Medicine; Referring Provider Internal Medicine Cardiovascular Disease; Visit Provider Internal Medicine Cardiovascular Disease
DX: I08.1 Rheumatic disorders of both mitral and tricuspid valves (principal); I77.89 Other specified disorders of arteries and arterioles
CPT/HCPCS: 93306

== ENCOUNTER → 2022-06-13 08:28 | Outpatient (CLI) | payer OTHER, SELFPAY ==
--- NOTE | 2022-06-13 08:32 | DI.MRI.S_ITS ---
PROCEDURE: MR STROKE Pre- and post-contrast brain MRI, non-contrast brain MR angiogram, pre- and postcontrast neck MR angiogram INDICATIONS: Memory changes TECHNIQUE: Brain: Noncontrast axial T1 spin echo, axial T2 fast spin echo, sagittal and axial FLAIR, coronal T2 fast spin echo, axial gradient echo, axial diffusion and ADC through the brain. After the administration of contrast, axial 3D VIBE of the cranial vasculature and brain. Brain MRA: Non-contrast 3-D time of flight MR angiogram, with multiple mbzfxmh-lxltevqpi-mfjbieiwzr (MIP) reformats performed. Neck MRA: Axial and sagittal TruFISP through the neck. Coronal dynamic MR angiogram during administration of contrast in the arterial and venous phases, with 3-dimenstional zcdxdtr-lukiavxvp-vusqatonkx (MIP) reformats constructed from subtraction images. COMPARISON: None. FINDINGS: Image quality: Excellent. BRAIN: CSF spaces: Ventricles are normal in size and shape. Basal cisterns are patent. No extra-axial fluid collections. Brain: No intracranial bleeds or mass effects. Snyder-white matter interface is normal. Diffusion weighted images show a tiny right frontal cortical area of increased signal measuring 3 mm. There is no corresponding cytotoxic edema noted on the axial FLAIR imaging. This most likely represents an artifact and not a tiny focal acute infarct. There are no other foci of restricted diffusion noted on diffusion-weighted imaging. Age-related volume loss and jglh-rg-czuptxbg small vessel ischemic change. Brainstem appears normal. Normal intravascular flow voids are present. No abnormal intracranial enhancement. Skull and face: Calvarial marrow signal is normal. Orbits appear normal. Sinuses: Sinuses and mastoids are clear. BRAIN MR ANGIOGRAM: Anterior circulation: Intracranial internal carotid arteries are normal in size and enhancement. The flow within the paired anterior cerebral arteries is normal and symmetric. The flow within the middle cerebral arteries is normal and symmetric. The anterior communicating artery is seen. No stenoses, occlusions, or aneurysms. Posterior circulation: The right vertebral artery is dominant. The distal left vertebral artery is not visualized, consistent with occlusion. The basilar artery is widely patent. The flow within the posterior cerebral arteries is normal and symmetric. No stenoses, occlusions, or aneurysms. NECK MR ANGIOGRAM: Carotids: Great vessels demonstrate a conventional anatomy as they arise from the aortic arch. The origins of the common carotid arteries appear patent. The calibers and courses of both common carotid arteries are normal. The bifurcation regions appear normal bilaterally. The internal carotid arteries demonstrate normal course and caliber. Posterior circulation: The proximal left vertebral artery is diffusely diminutive. The vertebral artery appears to occlude in the high cervical region. The distal vertebral artery is not visualized on the ofmf-ap-vofbtc imaging. The left subclavian is noted to be widely patent. The right vertebral artery is a normal caliber vessel, giving rise to a normal caliber basilar artery. Miscellaneous: Subclavian arteries appear patent. Pre-contrast images through the neck show no soft tissue abnormalities. IMPRESSION: BRAIN MRI: 1. Age-related volume loss and ynrc-rp-yrnoopld small vessel ischemic change. 2. Probable tiny artifact on diffusion-weighted imaging in the lateral right frontal cortex, acute infarct felt unlikely. 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 Otherwise unremarkable MR angiogram of the brain. NECK MR ANGIOGRAM: 1. Widely patent carotids. 2. 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 Right vertebral artery is widely patent. Dictated by: Martínez Barrett M.D. on 06/15/2022 at 8:06 Approved by: Martínez Barrett M.D. on 06/15/2022 at 8:22
== END ==
PROVIDERS: PCP Internal Medicine; Referring Provider Internal Medicine; Visit Provider Internal Medicine
DX: R41.89 Other symptoms and signs involving cognitive functions and awareness (principal); R41.3 Other amnesia
CPT/HCPCS: 70548; 70553; A9579

== ENCOUNTER → 2022-10-08 14:11 | Outpatient (CLI) | payer OTHER, SELFPAY ==
--- NOTE | 2022-10-08 | DI.ECHO.S_ITS ---
[facility] +---------+ Hospital +---------+ : : [address] : : : : [id number] : : : : Phone: [phone]---------+ Echocardiogram Report + + :Name: KANDACE FINCH Study Date: 10/08/2022 Height: 65 in : :[facility] ReadingLocation: Weight: 124 lb : : Gender: Female BSA: 1.6 m2 : :: 1940 Age: 81 yrs BP: 138/86 mmHg: :Reason For Study: Rhematic Disorders : :Ordering Physician: DWAINE, : :SYDNEY Performed By: Cindy March : :Referring: SYDNEY ISIDRO : + + Interpretation Summary The ejection fraction is estimated to be 60-65%. Diastolic parameters suggest probable normal left ventricular diastolic function and normal filling pressures. The right ventricle is normal in size and function. There is mild mitral regurgitation. The right ventricular systolic pressure is estimated to be at least 23 mmHg based on an estimated right atrial pressure of 8 mm Hg. Compared to the prior study dated 10/29/2020, no significant change. Procedure: A two-dimensional transthoracic echocardiogram with color flow and Doppler was performed. The study quality was technically adequate. Comparison is made with the echocardiogram of 10/29/2020. The patient was in normal sinus rhythm during the exam. The patient had occasional PVCs during the exam. Left Ventricle: The left ventricle is normal in size. The ejection fraction is estimated to be 60-65%. Diastolic parameters suggest probable normal left ventricular diastolic function and normal filling pressures. Right Ventricle: The right ventricle is normal in size and function. Atria: The left atrial size is normal. Right atrial size is normal. There is no Doppler evidence for an interatrial shunt. Mitral Valve: The mitral valve leaflets appear mildly thickened, but open well. There is no mitral valve stenosis. There is mild mitral regurgitation. Aortic Valve: The aortic valve is trileaflet. The aortic valve opens well. There is no aortic valve stenosis. No aortic regurgitation is present. Tricuspid Valve: The tricuspid valve is normal. There is no tricuspid stenosis. There is trace tricuspid regurgitation. The right ventricular systolic pressure is estimated to be at least 23 mmHg based on an estimated right atrial pressure of 8 mm Hg. Pulmonic Valve: The pulmonic valve leaflets are thin and pliable; valve motion is normal. There is no pulmonic valvular stenosis. There is no pulmonic valvular regurgitation. Great Vessels: The aortic root is normal size. The ascending aorta is at the upper limits of normal in size. The pulmonary artery is normal size. The IVC is dilated (diameter is greater than 2.1 cm) yet it collapses greater than 50% with a sniff. This suggests a right atrial pressure of 8 mm Hg. Pericardium/ Pleura There is no pericardial effusion. There is no pleural effusion. MMode/2D Measurements & Calculations LVIDd: 3.8 cm LVOT diam: 1.9 cm LVIDs: 3.3 cm Ao root diam: 3.2 cm FS: 13.2 % asc Aorta Diam: 3.8 cm IVSd: 1.1 cm LVPWd: 1.2 cm LV pineda. diameter/BSA (cm/m^2): 2.4 LV sys. diameter/BSA (cm/m^2): 2.0 LA A2 area: 11.6 cm2 RA long axis: 4.4 cm LA A4 area: 11.2 cm2 RA area: 9.4 cm2 LA length (vol): 4.7 cm RA vol: 17.0 ml LA vol: 23.6 ml RA : 10.6 ml/m2 LA vol index: 14.6 ml/m2 RVD1 (basal): 4.2 cm LVLs ap4: 5.4 cm LVLd ap2: 5.8 cm TAPSE_phl: 1.7 cm LVLs ap2: 4.9 cm Doppler Measurements & Calculations Ao V2 max: 115.0 cm/sec LVOT Max Guilherme: 101.0 cm/sec Ao V2 mean: 81.9 cm/sec LV V1 max P.1 mmHg Ao max P.0 mmHg LV V1 VTI: 20.0 cm Ao mean P.0 mmHg TIFFANIE(I,D): 2.1 cm2 Ao V2 VTI: 26.4 cm TIFFANIE(V,D): 2.5 cm2 sev ratio: 0.76 TIFFANIE indexed to BSA (cm^2/m^2): 1.3 MV E max guilherme: 43.9 cm/sec TR max guilherme: 195.0 cm/sec MV A max guilherme: 86.4 cm/sec TR max P.2 mmHg MV E/A: 0.51 PA V2 max: 95.3 cm/sec Med Peak E' Guilherme: 3.1 cm/sec PA V2 mean: 62.6 cm/sec E/E' med: 14.2 PA mean P.0 mmHg Lat Peak E' Guilherme: 6.9 cm/sec PA pr(Accel): 49.3 mmHg E/E' lat: 6.4 E/e' average: 10.3 MV dec time: 0.29 sec SV(LVOT): 56.7 ml AV VR_phl: 0.88 TIFFANIE(VTI)/BSA_phl: 1.3 MV P1/2t-pr_phl: 84.0 msec Reading Physician:05:20 PM
--- NOTE | 2022-10-08 | DI.US.S_ITS ---
PROCEDURE: US CAROTID DOPPLER BI INDICATIONS: RIGHT BRUIT OF CAROTID TECHNIQUE: Color and pulse Doppler interrogation was performed of both carotid systems, with image documentation and velocity measurements. COMPARISON: None. FINDINGS: Stenosis calculations are based on SRU (Society of Radiologists in Ultrasound) criteria. Right side: Brachial blood pressure: 123/79 mm Hg. Common carotid artery peak systolic velocity: 72 cm/sec. Internal carotid artery peak systolic velocity: 61 cm/sec. Internal carotid artery end diastolic velocity: 20 cm/sec. External carotid artery peak systolic velocity: 57 cm/sec. ICA/CCA peak systolic ratio: 0.67 . Snyder scale imaging description: Mild diffuse atherosclerotic plaque. Percent internal carotid artery stenosis: Less than 50%. Vertebral artery: Flow direction is antegrade. Left side: Brachial blood pressure: 137/76 mm Hg. Common carotid artery peak systolic velocity: 68 cm/sec. Internal carotid artery peak systolic velocity: 85 cm/sec. Internal carotid artery end diastolic velocity: 29 cm/sec. External carotid artery peak systolic velocity: 63 cm/sec. ICA/CCA peak systolic ratio: 1 . Snyder scale imaging description: Mild diffuse atherosclerotic plaque. Percent internal carotid artery stenosis: Less than 50% . Vertebral artery: Flow direction is antegrade. IMPRESSION: Left than 50% stenosis by peak systolic velocity criteria within the internal carotid arteries. Dictated by: Renan Johnson M.D. on 10/08/2022 at 17:30 Approved by: Renan Johnson M.D. on 10/08/2022 at 17:32
--- NOTE | 2022-10-08 14:35 | DI.DEXA.S_ITS ---
Bone Density Report Name: KANDACE FINCH Age: 81 Sex: Female Ethnicity: White Date of : 1940 Indication: osteopenia; Referring Provider: SYDNEY ISIDRO Study: Bone densitometry was performed. Exam Date: October 08, 2022 Accession number: [id number] Bone Density: Region BMD T-score Z-score Classification AP Spine(L1-L4) 0.862 -1.7 1.0 Osteopenia Femoral Neck (Left) 0.610 -2.2 0.2 Osteopenia Total Hip (Left) 0.795 -1.2 0.9 Osteopenia Femoral Neck (Right) 0.558 -2.6 -0.3 Osteoporosis Total Hip (Right) 0.683 -2.1 0.0 Osteopenia Total Hip Mean 0.739 -1.7 0.5 Osteopenia World Health Organization criteria for BMD impression classify patients as: Normal (T-score at or above -1.0), Osteopenia (T-score between -1.0 and -2.5), or Osteoporosis (T-score at or below -2.5). 10-year Fracture Risk: FRAX not reported because: Some T-score for Spine Total or Hip Total or Femoral Neck at or below -2.5 Previous Exams: -- Region Exam Age BMD T-score BMD Change BMD Change Date g/cm2 vs Baseline vs Previous -- AP Spine (L1-L4) 10/08/2022 81 0.862 -1.7 -0.048 (-5.3%)# -0.048 (-5.3%)# 07/10/2020 79 0.910 -1.2 Total Hip(Left) 10/08/2022 81 0.795 -1.2 0.006 (0.8%)# 0.006 (0.8%)# 07/10/2020 79 0.789 -1.3 Total Hip(Right) 10/08/2022 81 0.683 -2.1 -0.037 (-5.2%)# -0.037 (-5.2%)# 07/10/2020 79 0.720 -1.8 -- *Denotes significance at 95% confidence level, LSC for AP Spine = 0.022 g/cm2, LSC for Total Hip = 0.027 g/cm2 # Denotes dissimilar scan types or analysis methods Impression: The patient has osteoporosis, based on the Right Femoral Neck T-score. No significant bone loss was observed. Discussion: INCREASED RISK OF FRACTURE. BONE DENSITY IS UNDESIRABLY LOW AT ONE OR MORE SKELETAL SITES, CONSISTENT WITH POSTMENOPAUSAL OSTEOPOROSIS. This patient's lowest T-score meets the World Health Organization's (WHO) criteria for osteoporosis at one or more sites (T-score -2.5 or below). In untreated patients, the risk of osteoporotic fracture increases approximately two-fold for each 1.0 SD decrease in T-score. Low bone density is not the only risk factor for fracture; also consider factors such as patient's age, frailty or poor health, risk of falling, risk of injury, previous osteoporotic fracture, family history of osteoporosis, cigarette smoking, low body weight, etc. Not everyone with low bone mineral density has osteoporosis; osteomalacia and other metabolic bone disorders should also be considered. Patients who have osteoporosis should be evaluated for specific diseases and conditions (secondary causes) that may cause or contribute to bone loss. The [place] Association [employer] Clinical Endocrinologists (AACE) and National Osteoporosis Foundation (NOF) recommend pharmacologic intervention for all postmenopausal women whose T-score is in this range. The patient should follow a healthful lifestyle (good nutrition with adequate calcium and vitamin D, and appropriate weight-bearing exercise). Follow-Up: Consider a repeat BMD and Vertebral Fracture Assessment (VFA) exam in 2 years or sooner if medically necessary, to reassess this patient's status. Reported by: DARRYL OLIVAS M.D. on 10/08/2022 2:46:00 PM.
== END ==
PROVIDERS: PCP Internal Medicine; Referring Provider Internal Medicine; Visit Provider Internal Medicine
DX: I34.0 Nonrheumatic mitral (valve) insufficiency (principal); I44.0 Atrioventricular block, first degree; I65.23 Occlusion and stenosis of bilateral carotid arteries; I38 Endocarditis, valve unspecified; R09.89 Other specified symptoms and signs involving the circulatory and respiratory systems; M81.0 Age-related osteoporosis without current pathological fracture; Z78.0 Asymptomatic menopausal state
CPT/HCPCS: 77080; 93306; 93880

== ENCOUNTER → 2022-11-23 11:05 | Outpatient (CLI) | payer OTHER, SELFPAY ==
--- NOTE | 2022-11-23 11:07 | DI.RAD.S_ITS ---
PROCEDURE: XR ABDOMEN MIN 2V INDICATIONS: CONSTIPATION TECHNIQUE: 2 views of the abdomen were acquired. COMPARISON: None. FINDINGS: Surgical changes and devices: None. Bowel: No pneumoperitoneum. Moderate amount of fecal matter throughout the colon is seen extending to sigmoid colon and rectum. Soft tissues: No masses; visualized solid organ contours appear normal in size. No suspicious abdominal calcifications. Bones: No suspicious bony abnormalities. IMPRESSION: Moderate constipation and fecal impaction. No gross free air. No abnormal renal calcifications. Dictated by: Brendan Dotson M.D. on 11/23/2022 at 12:03 Approved by: Brendan Dotson M.D. on 11/23/2022 at 12:08
== END ==
PROVIDERS: PCP Internal Medicine; Referring Provider Internal Medicine; Visit Provider Internal Medicine
DX: K56.41 Fecal impaction (principal)
CPT/HCPCS: 74019

== ENCOUNTER → 2022-12-17 14:33 | Outpatient (CLI) | payer OTHER, SELFPAY ==
--- NOTE | 2022-12-17 | DI.CT.S_ITS ---
PROCEDURE: CT ABDOMEN PELVIS WO CON INDICATIONS: Constipation, unspecified TECHNIQUE: Axial sections were acquired from the lung bases to the pubic symphysis. Coronal and sagittal reformats were performed. For radiation dose reduction, the following was used: automated exposure control, adjustment of mA and/or kV according to patient size. COMPARISON: [facility], CT, CT ABDOMEN PELVIS WO [facility], 10/04/2017, 16:38. FINDINGS: Image quality: Good. Lung bases: Unremarkable. Heart: Prominent size. URINARY: Right Kidney: No stones or hydronephrosis. Right Ureter: No hydroureter. Left Kidney: No stones or hydronephrosis. Left Ureter: No hydroureter. Bladder: Normal wall thickness. No stones. ABDOMEN: Liver: Unremarkable. Gallbladder: Unremarkable. Biliary ducts: Unremarkable. Pancreas: Unremarkable. Spleen: Unremarkable. Adrenal Glands: Unremarkable. Stomach and Bowel: Diverticulosis. No diverticulitis. Somewhat prominent stool in the colon. Normal appendix. No small bowel obstruction. Stomach is within normal limits. Peritoneum: No abnormal intraperitoneal fluid. No free air. Ventral Wall: No hernia. Abdominal Nodes: No enlarged retroperitoneal or mesenteric lymph nodes. Vessels: Aorta and inferior vena cava are normal in size. PELVIS: Pelvic Organs: Uterus is absent. Pelvic Nodes: Unremarkable. Miscellaneous: No inguinal hernias are seen. Bones: No suspicious lesion. IMPRESSION: 1. Somewhat prominent stool in the colon. 2. Diverticulosis. No diverticulitis. No free fluid. 3. No kidney stones. Dictated by: Iftikhar Delarosa M.D. on 12/17/2022 at 16:20 Approved by: Iftikhar Delarosa M.D. on 12/17/2022 at 16:27
== END ==
PROVIDERS: PCP Internal Medicine; Referring Provider Internal Medicine; Visit Provider Internal Medicine
DX: R10.84 Generalized abdominal pain (principal); R10.2 Pelvic and perineal pain; R09.89 Other specified symptoms and signs involving the circulatory and respiratory systems; K59.00 Constipation, unspecified; K57.90 Diverticulosis of intestine, part unspecified, without perforation or abscess without bleeding
CPT/HCPCS: 74176

== ENCOUNTER → 2022-12-29 11:57 | Outpatient (CLI) | payer OTHER, SELFPAY ==
--- NOTE | 2022-12-29 | DI.RAD.S_ITS ---
PROCEDURE: XR LUMBAR SPINE 2-3V INDICATIONS: chronic low back pain TECHNIQUE: 3 views of the lumbar spine were acquired. COMPARISON: None. FINDINGS: Bones: 5 [id number] vertebrae are present. There is 5 millimeter retrolisthesis at L1-2 and L2-3 levels. 5 millimeter anterolisthesis of L5 on S1 is also seen. No vertebral body compression fractures. Degenerative endplate changes, loss of disc height and bilateral facet arthrosis throughout lumbar spine is seen. No suspicious bony lesions. Soft tissues: Overlying bowel gas pattern is normal. No suspicious soft tissue calcifications. IMPRESSION: Grade 1 spondylolisthesis as above. No acute compression fracture. Degenerative disc disease throughout lumbar spine. Dictated by: Brendan Dotson M.D. on 12/29/2022 at 16:28 Approved by: Brendan Dotson M.D. on 12/29/2022 at 16:29
== END ==
PROVIDERS: PCP Internal Medicine; Referring Provider Internal Medicine; Visit Provider Internal Medicine
DX: M54.50 Low back pain, unspecified (principal); G89.29 Other chronic pain; M43.16 Spondylolisthesis, lumbar region; M51.36 Other intervertebral disc degeneration, lumbar region
CPT/HCPCS: 72100

== ENCOUNTER → 2024-10-11 15:01 | Outpatient (CLI) | payer OTHER, SELFPAY ==
--- NOTE | 2024-10-11 15:03 | DI.US.S_ITS ---
PROCEDURE: US PERIPH VENOUS LOW EXTREM LT INDICATIONS: PAIN IN LEFT CALF TECHNIQUE: Real-time imaging, as well as color and pulse Doppler interrogation, were performed of the lower extremity deep veins from the inguinal ligament to the popliteal fossa, with documentation of the visualized calf veins. COMPARISON: None. FINDINGS: The common femoral, femoral, popliteal, and the visualized calf veins are normally compressible, and free of intraluminal thrombus. Color and pulse Doppler demonstrate normal phasic intraluminal flow. There is normal augmentation response to distal compression maneuver. IMPRESSION: No findings of lower extremity deep venous thrombosis. Dictated by: Renan Johnson M.D. on 10/11/2024 at 16:42 Approved by: Renan Johnson M.D. on 10/11/2024 at 16:45
== END ==
LOC: US 15:02
PROVIDERS: PCP Internal Medicine; Referring Provider Family Medicine; Visit Provider Family Medicine
DX: M79.662 Pain in left lower leg (principal)
CPT/HCPCS: 93971